=== PATIENT | female | born 1945 | race Caucasian/White ===

== ENCOUNTER → 2016-11-16 | Outpatient (CLI) | payer OTHER, MEDICARE | LOC: FIMAGING 15:38 | PROVIDERS: ATTEND Surgery | DX: R91.1 Solitary pulmonary nodule (principal); Z77.22 Contact with and (suspected) exposure to environmental tobacco smoke (acute) (chronic); Z85.3 Personal history of malignant neoplasm of breast ==

== ENCOUNTER 2017-10-16 20:35 | Emergency (ER) | payer OTHER, MEDICARE ==
[2017-10-16] MEDS ORDERED: NS 1,000 ML IV ONE (21:22)
--- NOTE | 2017-10-16 21:29 | EDPHY ---
H & P Stated Complaint: Started wed left arm and left shulder pain Time Seen by Provider: 10/16/17 21:11 HPI/ROS: CHIEF COMPLAINT: Left forearm pain HISTORY OF PRESENT ILLNESS: The patient is a 72-year-old female who comes to the emergency department complaining of left forearm pain that began 5 days ago and was fairly constant for 4 days but is resolving today. She also states that the this evening she had some left scapular pain that is now resolved. She denies any cardiac history and states that she had a stress test 10 years ago that was negative. She states that they are also following a nodule in the left lung. She was concerned about maybe a blood clot in her arm. No recent trauma. No IVs or injuries. She cannot think of a particular movement or position that made her symptoms worse or better. She has multiple concerns because she is now the age that her father was when he . No fevers. No cough. REVIEW OF SYSTEMS: Constitutional: denies: chills, fever, recent illness, recent injury EENTM: denies: blurred vision, double vision, nose congestion Respiratory: denies: cough, shortness of breath Cardiac: denies: chest pain, irregular heart rate, lightheadedness, palpitations Gastrointestinal/Abdominal: denies: abdominal pain, diarrhea, nausea, vomiting, blood streaked stools Genitourinary: denies: dysuria, frequency, hematuria, pain Musculoskeletal: See HPI Skin: denies: lesions, rash, jaundice, bruising Neurological: denies: headache, numbness, paresthesia, tingling, dizziness, weakness Hematologic/Lymphatic: denies: blood clots, easy bleeding, easy bruising Immunologic/allergic: denies: HIV/AIDS, transplant EXAM: GENERAL: Well-appearing, well-nourished and in no acute distress. HEAD: Atraumatic, normocephalic. EYES: Pupils equal round and reactive to light, extraocular movements intact, sclera anicteric, conjunctiva are normal. ENT: TMs normal, nares patent, oropharynx clear without exudates. Moist mucous membranes. NECK: Normal range of motion, supple without lymphadenopathy or JVD. LUNGS: Breath sounds clear to auscultation bilaterally and equal. No wheezes rales or rhonchi. HEART: Regular rate and rhythm without murmurs, rubs or gallops. ABDOMEN: Soft, nontender, normoactive bowel sounds. No guarding, no rebound. No masses appreciated. BACK: No CVA tenderness, no spinal tenderness, step-offs or deformities EXTREMITIES: No edema, normal pulses. Normal range of motion, no pitting or edema. No clubbing or cyanosis. NEUROLOGICAL: Cranial nerves II through XII grossly intact. Normal speech, normal gait. 5/5 strength, normal movement in all extremities, normal sensation PSYCH: Normal mood, normal affect. SKIN: Warm, dry, normal turgor, no visible rashes or lesions. Source: Patient Exam Limitations: No limitations - Personal History Current Tetanus/Diphtheria Vaccine: Unsure Current Tetanus Diphtheria and Acellular Pertussis (TDAP): Unsure - Medical/Surgical History Hx Asthma: No Hx Chronic Respiratory Disease: No Hx Diabetes: No Hx Cardiac Disease: No Hx Renal Disease: No Hx Cirrhosis: No Hx Alcoholism: No Hx HIV/AIDS: No Hx Splenectomy or Spleen Trauma: No Other PMH: tonsilectomy, left breast removal, thyroid surgey, lung nodule - Family History Significant Family History: No pertinent family hx - Social History Smoking Status: Never smoked Alcohol Use: Sober Drug Use: None Constitutional: Initial Vital Signs Temperature (C) 36.9 C 10/16/17 20:39 Heart Rate 93 10/16/17 20:39 Respiratory Rate 18 10/16/17 20:39 Blood Pressure 147/104 H 10/16/17 20:39 O2 Sat (%) 94 10/16/17 20:39 O2 Delivery Mode Room Air Allergies/Adverse Reactions: beeswax Allergy (Verified 10/16/17 20:44) latex Allergy (Verified 10/16/17 20:45) Home Medications: Medication Instructions Recorded Levothyroxine 10/16/17 Maxzide-25 (*) 10/16/17 Pravastatin Sodium 10/16/17 Medical Decision Making - Diagnostics EKG Interpretation: An EKG obtained and was read and documented in trace view. Please see trace view for full reading and report. Sinus rhythm, no acute ischemic changes Imaging Results: Imaging Impressions Chest X-Ray 10/16/17 21:23 Impression: 1. Tortuous thoracic aorta. 2. No acute pulmonary disease. Imaging: Discussed imaging studies w/ [facility] [employer] Radiologist ED Course/Re-evaluation: 10 15 we discussed the lab results which are reassuring. The patient has an age adjusted D-dimer is negative. Her lab work is also unremarkable. Overall she is asymptomatic this time. We discussed differential as well as expected course and indications for returning. She is eager to go home and declines further workup or testing at this time. Differential Diagnosis: Partial list of the Differential diagnosis considered include but were not limited to; tendinitis, muscle strain, neuropathy and although unlikely based on the history and physical exam, I also considered DVT, acute coronary disease , dissection, PE, septic joint, fracture. I discussed these differential diagnoses and the plan with the patient as well as the usual and expected course. The patient understands that the diagnosis is provisional and that in medicine we are not always correct and that further workup is often warranted. Usual and customary warnings were given. All of the patient's questions were answered. The patient was instructed to return to the emergency department should the symptoms at all worsen or return, otherwise to followup with the physician as we discussed. - Data Points Laboratory Results: Laboratory Results 10/16/17 21:38 10/16/17 21:38 10/16/17 10/16/17 10/16/17 21:38 21:38 21:38 WBC 8.73 10^3/uL 10^3/uL (3.80-9.50) RBC 4.14 10^6/uL L 10^6/uL (4.18-5.33) Hgb 12.8 g/dL g/dL (12.6-16.3) Hct 36.6 % L % (38.0-47.0) MCV 88.4 fL fL (81.5-99.8) MCH 30.9 pg pg (27.9-34.1) MCHC 35.0 g/dL g/dL (32.4-36.7) RDW 13.2 % % (11.5-15.2) Plt Count 300 10^3/uL 10^3/uL (150-400) MPV 9.7 fL fL (8.7-11.7) Neut % (Auto) 57.2 % % (39.3-74.2) Lymph % (Auto) 34.0 % % (15.0-45.0) [place] % (Auto) 6.1 % % (4.5-13.0) Eos % (Auto) 1.5 % % (0.6-7.6) Baso % (Auto) 0.9 % % (0.3-1.7) Nucleat RBC Rel Count 0.0 % % (0.0-0.2) Absolute Neuts (auto) 4.99 10^3/uL 10^3/uL (1.70-6.50) Absolute Lymphs (auto) 2.97 10^3/uL 10^3/uL (1.00-3.00) Absolute Monos (auto) 0.53 10^3/uL 10^3/uL (0.30-0.80) Absolute Eos (auto) 0.13 10^3/uL 10^3/uL (0.03-0.40) Absolute Basos (auto) 0.08 10^3/uL 10^3/uL (0.02-0.10) Absolute Nucleated RBC 0.00 10^3/uL 10^3/uL (0-0.01) Immature Gran % 0.3 % % (0.0-1.1) Immature Gran # 0.03 10^3/uL 10^3/uL (0.00-0.10) D-Dimer 0.60 ug/mLFEU H ug/mLFEU (0.00-0.50) Sodium 143 mEq/L mEq/L (135-145) Potassium 3.8 mEq/L mEq/L (3.3-5.0) Chloride 105 mEq/L mEq/L (97-110) Carbon Dioxide 26 mEq/l mEq/l (22-31) Anion Gap 12 mEq/L mEq/L (8-16) BUN 14 mg/dL mg/dL (7-23) Creatinine 1.1 mg/dL H mg/dL (0.6-1.0) Estimated GFR 49 Glucose 87 mg/dL mg/dL (70-100) Calcium 10.1 mg/dL mg/dL (8.5-10.4) Troponin I < 0.012 ng/mL ng/mL (0.000-0.034) C-Reactive Protein < 5.0 mg/L mg/L (<10.0) Medications Given: Discontinued Medications Sodium Chloride (Ns) 1,000 mls @ 0 mls/hr IV EDNOW ONE; Wide Open PRN Reason: Protocol Stop: 05/21/18 21:23 Last Admin: 10/16/17 21:38 Dose: 1,000 mls Departure - Departure Disposition: Home, Routine, Self-Care Clinical Impression: Pain in left arm Condition: Good Instructions: Arm Pain (ED) Referrals: Delilah Spann MD [Primary Care Provider] - 2-3 days, if not improved
--- NOTE | 2017-10-16 21:36 | CPEKG ---
Heart Rate: 78 RR Interval: 769 P-R Interval: 176 QRSD Interval: 98 QT Interval: 384 QTC Interval: 438 P [place]: 54 QRS [place]: 51 T Wave [place]: 22 EKG Severity - NORMAL ECG - EKG Impression: SINUS RHYTHM Electronically Signed By: Doe Laureano 16-Oct-2017 21:44:59
[2017-10-16 21:50] LABS: PLATELET COUNT 300 10^3/uL (150-400)
[2017-10-16 22:52] VITALS: BP 138/79
== END 2017-10-16 22:52 | disposition home or self-care (01) ==
DX: M79.632 Pain in left forearm (principal); E86.9 Volume depletion, unspecified; Z91.040 Latex allergy status

== ENCOUNTER → 2018-07-26 | Outpatient (CLI) | payer OTHER, MEDICARE | LOC: FIMAGING 14:21 | PROVIDERS: ATTEND Surgery | DX: Z09 Encounter for follow-up examination after completed treatment for conditions other than malignant neoplasm (principal); R91.1 Solitary pulmonary nodule; Z85.3 Personal history of malignant neoplasm of breast; Z77.22 Contact with and (suspected) exposure to environmental tobacco smoke (acute) (chronic) ==

== ENCOUNTER → 2018-08-03 | Outpatient (CLI) | payer OTHER, MEDICARE | LOC: FIMAGING 13:19 | PROVIDERS: ATTEND Surgery | DX: Z12.31 Encounter for screening mammogram for malignant neoplasm of breast (principal); Z85.3 Personal history of malignant neoplasm of breast; Z80.3 Family history of malignant neoplasm of breast ==